=== PATIENT | male | born 1940 | race Caucasian/White ===

== ENCOUNTER → 2018-02-26 09:54 | Outpatient (CLI) | payer OTHER, SELFPAY ==
[2018-02-26 11:07] LABS: CREATININE 1.33 mg/dL (0.70-1.30); Cholesterol 156 mg/dL (50-200); Estimated GFR 52.28 (mL/min/1.73m2); HDL Cholesterol 41 mg/dL (40-60); LDL CHOLESTEROL 85 mg/dL (<100); Potassium 4.1 mmol/L (3.5-5.1); Triglyceride 237 mg/dL (30-150)
== END ==
PROVIDERS: PCP Family Medicine; Visit Provider Family Medicine
DX: E78.5 Hyperlipidemia, unspecified (principal); I10 Essential (primary) hypertension
CPT/HCPCS: 36415; 80061; 83721; 82565; 84132

== ENCOUNTER 2019-05-09 09:41 | Outpatient (CLI) | payer OTHER, SELFPAY ==
[2019-05-09 13:19] LABS: CREATININE 1.33 mg/dL (0.70-1.30); Calculated LDL 65 mg/dL; Cholesterol 138 mg/dL (50-200); Estimated GFR 52.14 (mL/min/1.73m2); HDL Cholesterol 42 mg/dL (40-60); Potassium 4.5 mmol/L (3.5-5.1); Triglyceride 156 mg/dL (30-150)
[2019-05-09 13:32] LABS: Uric Acid 7.6 mg/dL (3.5-7.2)
== END 2019-05-09 10:01 ==
PROVIDERS: PCP Family Medicine; Visit Provider Family Medicine
DX: E79.0 Hyperuricemia without signs of inflammatory arthritis and tophaceous disease (principal); I10 Essential (primary) hypertension; E78.5 Hyperlipidemia, unspecified
CPT/HCPCS: 36415; 80061; 82565; 84132; 84550

== ENCOUNTER 2020-05-11 12:05 | Outpatient (CLI) | payer OTHER, SELFPAY ==
[2020-05-11 13:59] LABS: CREATININE 1.24 mg/dL (0.70-1.30); Estimated GFR 56.38 (mL/min/1.73m2); HDL Cholesterol 40 mg/dL (40-60); Potassium 4.3 mmol/L (3.5-5.1); Triglyceride 139 mg/dL (<150)
[2020-05-11 14:27] LABS: Calculated LDL 62 mg/dL (<100); Cholesterol 129 mg/dL (<200)
== END 2020-05-11 12:25 ==
PROVIDERS: PCP Family Medicine; Visit Provider Family Medicine
DX: E78.5 Hyperlipidemia, unspecified (principal); I10 Essential (primary) hypertension; M10.9 Gout, unspecified
CPT/HCPCS: 36415; 80061; 82565; 84132; 84550

== ENCOUNTER 2022-04-25 09:00 | Outpatient (CLI) | payer MEDICARE, SELFPAY ==
[2022-04-25 12:24] LABS: Anion Gap 10.9 mmol/L (3-11); BUN 16 mg/dL (7-18); CO2 26.1 mmol/L (21.0-32.0); CREATININE 1.3 mg/dL (0.70-1.30); Calcium 9.3 mg/dL (8.5-10.1); Calculated LDL 59 mg/dL (<100); Chloride 105 mmol/L (98-107); Cholesterol 133 mg/dL (<200); Estimated GFR 55.53 (mL/min/1.73m2); Glucose 92 mg/dL (74-106); HDL Cholesterol 44 mg/dL (40-60); Potassium 4.4 mmol/L (3.5-5.1); Sodium 142 mmol/L (136-145); Triglyceride 153 mg/dL (<150)
== END 2022-04-25 09:01 | disposition home or self-care (01) ==
LOC: LOS 09:01
PROVIDERS: PCP Family Medicine; Referring Provider Family Medicine; Visit Provider Family Medicine
DX: E87.1 Hypo-osmolality and hyponatremia (principal); E78.5 Hyperlipidemia, unspecified
CPT/HCPCS: 36415; 80048; 80061

== ENCOUNTER 2023-04-26 09:49 | Outpatient (CLI) | payer MEDICARE, SELFPAY ==
[2023-04-26 13:43] LABS: CREATININE 1.3 mg/dL (0.70-1.30); Estimated GFR 55.19 (mL/min/1.73m2); Potassium 4.1 mmol/L (3.5-5.1)
== END 2023-04-26 09:50 | disposition home or self-care (01) ==
LOC: LOS 09:49
PROVIDERS: PCP Family Medicine; Referring Provider Family Medicine; Visit Provider Family Medicine
DX: I10 Essential (primary) hypertension (principal)
CPT/HCPCS: 36415; 82565; 84132

== ENCOUNTER 2024-04-17 10:25 | Outpatient (CLI) | payer MEDICARE, SELFPAY ==
[2024-04-17 12:41] LABS: CREATININE 1.3 mg/dL (0.70-1.30); Estimated GFR 54.85 (mL/min/1.73m2); Potassium 3.9 mmol/L (3.5-5.1)
== END 2024-04-17 10:26 | disposition home or self-care (01) ==
PROVIDERS: PCP Family Medicine; Visit Provider Family Medicine
DX: I10 Essential (primary) hypertension (principal); Z23 Encounter for immunization; Z00.00 Encounter for general adult medical examination without abnormal findings
CPT/HCPCS: 36415; 82565; 84132

== ENCOUNTER 2025-04-23 11:26 | Outpatient (CLI) | payer MEDICARE, SELFPAY ==
[2025-04-23 16:16] LABS: Estimated GFR 60.00 (mL/min/1.73m2); Potassium 4.2 mmol/L (3.5-5.1)
== END 2025-04-23 11:27 | disposition home or self-care (01) ==
LOC: LOS 11:26
PROVIDERS: PCP Family Medicine; Referring Provider Family Medicine; Visit Provider Family Medicine
DX: I10 Essential (primary) hypertension (principal)
CPT/HCPCS: 36415; 82565; 84132